=== PATIENT | male | born 1965 | race Caucasian/White ===

== ENCOUNTER 2024-09-08 19:46 | Emergency (ER) | payer OTHER, SELFPAY ==
[2024-09-08 19:57] VITALS: BP 139/92
[2024-09-08 20:37] VITALS: BMI 32.1
--- NOTE | 2024-09-08 21:11 | ED.GENMED ---
History of Present Illness
General
Chief Complaint: Skin Surface Trauma
Source: patient
Exam Limitations: none
Time Seen by Provider: 09/08/24 21:01
History of Present Illness
History of Present Illness:
59-year-old male presents after he bit his tongue at dinner. Did not realize when he got home he had bleeding that just would not stop. Controlled on arrival. No other complaints. Is not anticoagulated
Past History
Past History
ED Past Medical History: HTN, Hypercholesterolemia and Psychiatric (Anxiety and depression)
ED Past Surgical History: Other (Noncontributory)
Social History
Tobacco: Non-smoker
Alcohol: None
Drug: None
Personal: Single
Living: with family
Family History
Family History: CAD
Phy Exam
Physical Exam
Physical Exam:
CONSTITUTIONAL Vital signs reviewed, Patient alert and oriented to person, place and time. Well-appearing
HEAD atraumatic, normocephalic.
EYES eyelids normal to inspection, Extraocular muscles intact, Conjunctiva normal, Sclera normal.
ENT small less than half centimeter laceration noted to the ventral portion of the tongue with no active bleeding. Laceration toward the tip. Well approximated
NECK normal range of motion, Trachea midline, no jugular venous distention.
RESP no respiratory distress
BACK No obvious deformities
UPPER EXTREMITY Gross Range of motion normal, gross motor strength normal
LOWER EXTREMITY Gross range of motion normal, Gross motor strength normal
NEURO Speech normal, No focal motor deficits include, Jame coma scale 15, Memory normal, Cranial Nerves intact to screening exam.
SKIN Skin warm, dry, and normal in color.
PSYCHIATRIC Patient oriented to person place and time, Normal affect.
Course
Vital Signs
Initial and Last Documented VS:
Initial Vital Signs
Temp Pulse Resp BP Pulse Ox
98.7 F 92 15 139/92 98
09/08/24 19:57 09/08/24 19:57 09/08/24 19:57 09/08/24 19:57 09/08/24 19:57
Last Documented Vital Signs
Temp Pulse Resp BP Pulse Ox
98.7 F 92 15 139/92 98
09/08/24 19:57 09/08/24 19:57 09/08/24 19:57 09/08/24 19:57 09/08/24 19:57
MDM/Problems Addressed
MDM/Problems Addressed:
Tongue laceration
Acute Exacerbation and/or Progression of Chronic Illness: HTN
*Pulse Oximetry
Patient hypoxic: no
*Critical Care Note
Total Time (30-74mins, 75-104mins- exclusive of procedures): Not Applicable
Data Reviewed
Source: patient
Prescriptions/Medications Considered But Not Given:
Considered topical TXA but no further bleeding
Patient Management
Escalation/DeEscalation of care consider admission/obs:
Consider repair but well-approximated and bleeding is controlled. Okay for outpatient management
ED Attending Note
-
Portions of this chart may have been created with voice recognition software.� Occasional wrong word or��sound alike� substitutions may have occurred due to the inherent limitations of voice recognition software.
Discharge Plan
Departure
Patient Disposition: Home (Routine Discharge)
Date of Disposition: 09/08/24
Time of Disposition: 21:11
Patient with high blood pressure during this ER visit?: Yes
Discharge Problem:
Simple laceration of tongue
Instructions: BLOOD PRESSURE, Laceration
Prescriptions:
No Action
pravastatin 40 MG tablet
40 mg PO HS
quetiapine 100 MG tablet
100 mg PO HS
lisinopril 10 MG tablet
10 mg PO DAILY
risperidone 1 MG tablet
1 mg PO HS
lamotrigine 100 MG tablet
100 mg PO HS
atomoxetine [Strattera] 40 MG capsule
80 mg PO DAILY
clonazepam 1 MG tablet
1 mg PO Q6HPRN PRN (Reason: anxiety) Qty: 12 0RF
Referrals:
Acosta Griffiths MD [Family Provider] -
Activity Restrictions/Additional Instructions:
Tongue laceration
Tomorrow gentle mouth rinses are reasonable to keep debris out of the wound. This wound will heal expectantly. If bleeding recurs hold pressure.
Interventions
Interventions:
*Risk Screen - Suicide Last Done: 09/08/24 19:57
*General Assessment Last Done: 09/08/24 19:57
*Neglect/Abuse Screening Last Done: 09/08/24 19:57
*ED COVID-19 Vaccine History Last Done: 09/08/24 19:57
ED-Skin Assessment Last Done: 09/08/24 20:37
Discharge Date and Time
Print Language: MARTINIQUAIS
== END 2024-09-08 21:31 | disposition home or self-care (01) ==
LOC: EMR 19:46
PROVIDERS: EMERGENCY PHYSICIAN Emergency Medicine; FAMILY PHYSICIAN Internal Medicine
DX: S01.512A Laceration without foreign body of oral cavity, initial encounter (principal); X58.XXXA Exposure to other specified factors, initial encounter; E78.00 Pure hypercholesterolemia, unspecified; I10 Essential (primary) hypertension
CPT/HCPCS: 99282